=== PATIENT | male | born 1950 | race Caucasian/White ===

== ENCOUNTER → 2021-10-20 | Outpatient (CLI) | payer MEDICARE ==
[~2021-10-20] MED LIST: LEXISCAN IV ONE
--- NOTE | 2021-10-27 12:05 | ECHO ---
DATE OF SERVICE: 10/23/2021 DICTATOR NAME: Radha Rankin MD 2-DAY MYOCARDIAL PERFUSION IMAGING IDENTIFICATION: A 71-year-old male. He is 340 pounds, 61 inches. History of hypertension, hypertensive heart disease with chronic diastolic heart failure, morbid obesity, preoperative cardiovascular evaluation for back operation. 12-lead EKG, regular sinus rhythm with poor R-wave, V1, V2 and diffuse nonspecific ST-T wave changes. Resting heart rate is 82. The patient had a Lexiscan perfusion study done and Lexiscan 0.4 mg IV was given over 15 seconds followed by 30 mCi of Cardiolite. The patient complained of moderate dyspnea. No chest pain and diffuse ST-T wave changes. Resting images were done on a separate date of 10/23/2021 with 30 mCi of Cardiolite. The patient tolerated the procedure well. Abnormal myocardial perfusion study with TID (transient ischemic dilatation) of the ventricle to 1.12. Normal perfusion of the anterior wall and apex. Mild localized inferoposterior hypoperfusion best seen in the rest images, more consistent with diaphragmatic attenuation, most of inferior wall perfusion as well high lateral wall through the mild localized hypoperfusion with reperfusion abnormality. Clinical correlation advised to assess for underlying flow obstructive coronary artery disease. The patient is 340 pounds and probably may require a cardiac catheterization to be very certain that he does not have coronary artery disease in view of his multiple risk factors and borderline myocardial perfusion study and an abnormal TID of 1.12. Radha Rankin MD DR: TIESHA/MAYA/BUD TID: [id number] RECEIPT: [id number]
== END | disposition home or self-care (01) ==
LOC: RT 08:29
PROVIDERS: ATTEND Specialist
DX: I11.0 Hypertensive heart disease with heart failure (principal); G47.33 Obstructive sleep apnea (adult) (pediatric); R06.00 Dyspnea, unspecified; R60.0 Localized edema; E66.01 Morbid (severe) obesity due to excess calories
CPT/HCPCS: 78452; 93017; A9500; J2785